=== PATIENT | female | born 1955 | race African-American/Black ===

== ENCOUNTER 2017-09-27 17:21 | Emergency (ER) | payer OTHER ==
--- NOTE | 2017-09-27 17:32 | PDOC ---
History of Present Illness - General Chief Complaint: Headache Stated Complaint: HYPERTENSION Time Seen by Provider: 09/27/17 17:31 - History of Present Illness Initial Comments: 09/27/17 17:52 Ms. Mccarthy is a 61 yo female w/ pmh of HTN, GERD and glaucoma who presents complaining of a severe generalized headache and intermittent chest pain today with insidious onset. She reports she went to her pcp's office today for this and was told to come to ER after BP was noted to be above 200 systolic. Ms. Mccarthy reports that yesterday she was feeling at her baseline but that her headache started after waking up today. She describes her chest pain as a burning sensation that she describes as separate from her normal burning GERD sensations. The patient denies chest pain, shortness of breath, and dizziness. Denies fever , chills, nausea, vomit, diarrhea and constipation. Denies dysuria, frequency, urgency and hematuria. Allergies: Ketorolac, triamcinolone Past History - Past Medical History Allergies/Adverse Reactions: Allergies Allergy/AdvReac Type Severity Reaction Status Date / Time ketorolac tromethamine Allergy Intermediate Rash Verified 09/27/17 17:32 [From Toradol] triamcinolone acetonide Allergy Mild Rash Verified 09/27/17 17:32 [From Kenalog] latex Allergy Rash Verified 09/27/17 17:32 Home Medications: Ambulatory Orders Aspirin [ASA -] 81 mg PO DAILY 09/02/13 Atorvastatin Ca [Lipitor] 40 mg PO HS #30 tablet 09/13/13 Diltiazem Cd [Cardizem Cd -] 120 mg PO DAILY #30 cap.cd.24h 09/13/13 Magnesium Hydroxide [Milk of Magnesia -] 30 ml PO DAILY PRN #1 ml 09/13/13 Metoclopramide HCl [Reglan -] 10 mg PO TID #90 tablet 09/13/13 Mirtazapine [Remeron -] 15 mg PO HS #30 tablet 09/13/13 Cyclobenzaprine HCl [Flexeril -] 10 mg PO BID 11/06/13 Metronidazole 250 mg PO QID 11/06/13 Omeprazole 40 mg PO DAILY 11/06/13 Tapentadol HCl [Nucynta] 100 mg PO DAILY PRN 11/06/13 Sulfamethoxazole/Trimethoprim [Bactrim Ds -] 1 tab PO BID #6 tablet 09/27/17 Anemia: No Asthma: No Cancer: No Cardiac Disorders: No CVA: No COPD: No CHF: No Dementia: No Diabetes: No GI Disorders: No Disorders: No HTN: Yes Hypercholesterolemia: Yes Liver Disease: No Seizures: No Thyroid Disease: No - Surgical History Abdominal Surgery: No Appendectomy: No Cardiac Surgery: No Cholecystectomy: No Lung Surgery: No Neurologic Surgery: No (FACET INJECTION) Orthopedic Surgery: Yes (right knee arthroscopy,LEFT KNEE ARTHROSCOPY) - Suicide/Smoking/Psychosocial Hx Smoking History: Never smoked Have you smoked in the past 12 months: No Hx Alcohol Use: No Drug/Substance Use Hx: No Substance Use Type: None Hx Substance Use Treatment: No Review of Systems - Review of Systems Comments:: 09/27/17 18:03 GENERAL/CONSTITUTIONAL: No fever or chills. No weakness. HEAD, EYES, EARS, NOSE AND THROAT: No change in vision. No ear pain or discharge. No sore throat. CARDIOVASCULAR: No chest pain or shortness of breath RESPIRATORY: No cough, wheezing, or hemoptysis. GASTROINTESTINAL: No nausea, vomiting, diarrhea or constipation. GENITOURINARY: No dysuria, frequency, or change in urination. MUSCULOSKELETAL: No joint or muscle swelling or pain. No neck or back pain. SKIN: No rash NEUROLOGIC: +Headache as described. No vertigo, loss of consciousness, or change in strength/sensation. ENDOCRINE: No increased thirst. No abnormal weight change HEMATOLOGIC/LYMPHATIC: No anemia, easy bleeding, or history of blood clots. ALLERGIC/IMMUNOLOGIC: No hives or skin allergy. *Physical Exam - Physical Exam Comments: 09/27/17 18:03 GENERAL: Awake, alert, and fully oriented, in no acute distress HEAD: No signs of trauma, normocephalic, atraumatic EYES: PERRLA, EOMI, sclera anicteric, conjunctiva clear ENT: Auricles normal inspection, hearing grossly normal, nares patent, oropharynx clear without exudates. Moist mucosa NECK: Normal ROM, supple, no lymphadenopathy, JVD, or masses LUNGS: No distress, speaks full sentences, clear to auscultation bilaterally HEART: Regular rate and rhythm, normal S1 and S2, no murmurs, rubs or gallops, peripheral pulses normal and equal bilaterally. ABDOMEN: Soft, nontender, normoactive bowel sounds. No guarding, no rebound. No masses EXTREMITIES: Normal inspection, Normal range of motion, no edema. No clubbing or cyanosis. NEUROLOGICAL: Cranial nerves II through XII grossly intact. Normal speech, normal gait, no focal sensorimotor deficits SKIN: Warm, Dry, normal turgor, no rashes or lesions noted. ED Treatment Course - LABORATORY CBC & Chemistry Diagram: 09/27/17 18:00 09/27/17 19:00 Medical Decision Making - Medical Decision Making 09/27/17 18:40 Ms. Mccarthy is a 61 yo female w/ pmh as described who presents w/ increased BP and headache as described. Patient's home diltiazem given for treatment as well as cardiac workup and pain control started. No observed affect from diltiazem, clonidine, benadryl, and reglan given for further treatment. 09/27/17 20:17 Systolic BP decreased to 100, gentle hydration started as patient responds to clonidine. Patient reporting relief from symptoms with no current complaints. Alert and oriented. 09/27/17 22:08 Patient stable, maintaining AOx3. Rx sent to pt's pharmacy for UTI. Discharging patient to home with instructions to follow-up with PCP tomorrow. Patient verbalized understanding and agreement and will comply. Discharging to home. *DC/Admit/Observation/Transfer Diagnosis at time of Disposition: Hypertension Qualifiers: Hypertension type: unspecified Qualified Code(s): I10 - Essential (primary) hypertension UTI (urinary tract infection) Qualifiers: Urinary tract infection type: site unspecified Hematuria presence: without hematuria Qualified Code(s): N39.0 - Urinary tract infection, site not specified - Discharge Dispostion Disposition: HOME - Referrals Referrals: King Wall [Primary Care Provider] - - Patient Instructions Printed Discharge Instructions: DI for Urinary Tract Infection (UTI) Additional Instructions: Please return if any pain, fever, chills, altered mental status, or other concerning symptoms. Follow-up with primary care provider tomorrow for further evaluation. - Post Discharge Activity
[2017-09-27] MEDS ORDERED: dilTIAZem HCL 60 MG TABLET (FP) PO ONE (17:48)
[2017-09-27] MEDS ORDERED: MAG HYDROX/AL HYDROX/SIMETH 30 ML UNIT-DOSE CUP PO ONE (17:50)
[2017-09-27] MEDS ORDERED: ACETAMINOPHEN 500 MG TABLET (FP) PO ONE (17:50)
[2017-09-27] MEDS ORDERED: FAMOTIDINE IV 20 MG/12 ML VIAL IVPB ONE (17:51)
[2017-09-27] MEDS ORDERED: ACETAMINOPHEN 325 MG TABLET (FP) ONE (17:58)
[2017-09-27] MEDS ORDERED: dilTIAZem HCL 60 MG TABLET (FP) ONE (17:59)
[2017-09-27] MEDS ORDERED: MAG HYDROX/AL HYDROX/SIMETH 30 ML UNIT-DOSE CUP ONE (17:59)
[2017-09-27] MEDS ORDERED: FAMOTIDINE 20 MG/50 ML IVPB 20 MG/50 ML MG IVPB ONE (18:00)
[2017-09-27 18:28] VITALS: TEMP 99; BMI 67.6
[2017-09-27] MEDS ORDERED: METOCLOPRAMIDE HCL INJECTION 10 MG/2 ML VIAL IVPB ONE (18:38)
[2017-09-27] MEDS ORDERED: cloNIDine HCL 0.1 MG TABLET PO ONE (18:38)
[2017-09-27] MEDS ORDERED: METOCLOPRAMIDE HCL INJECTION 10 MG/2 ML VIAL ONE (18:46)
[2017-09-27] MEDS ORDERED: cloNIDine HCL 0.1 MG TABLET ONE (18:46)
[2017-09-27 18:47] LABS: URINE APPEARANCE CLEAR; URINE BILIRUBIN NEGATIVE (NEGATIVE); URINE BLOOD NEGATIVE (NEGATIVE); URINE COLOR STRAW; URINE GLUCOSE (UA) NEGATIVE (NEGATIVE); URINE KETONE NEGATIVE (NEGATIVE); URINE NITRITE NEGATIVE (NEGATIVE); URINE UROBILINOGEN NEGATIVE mg/dL (0.2-1.0)
[2017-09-27 18:49] LABS: BASO % 0.6 % (0-2.0); EOS % 0.2 % (0-4.5); HEMATOCRIT 40.5 % (32.4-45.2); HEMOGLOBIN 13.9 GM/dL (10.7-15.3); MCH 29.2 pg (25.7-33.7); MCHC 34.4 g/dl (32.0-36.0); MEAN CELL VOLUME 84.7 fl (80-96); MEAN PLT VOLUME 7.3 fl (7.5-11.1); MONO % 8.1 % (3.8-10.2); NEUT % 74.1 % (42.8-82.8); PLATELET COUNT 282 K/MM3 (134-434); RBC 4.77 M/mm3 (3.60-5.2); RDW 14.3 % (11.6-15.6); WHITE BLOOD COUNT 9.8 K/mm3 (4.0-10.0)
[2017-09-27 18:52] LABS: URINE PROTEIN 1+ (NEGATIVE)
[2017-09-27 18:53] LABS: URINE LEUK ESTERASE 2+ (NEGATIVE)
[2017-09-27] MEDS ORDERED: SODIUM CHLORIDE 500 ML IV STA ×2 (19:20→20:44)
[2017-09-27 19:46] LABS: EPI CELLS RARE /HPF (FEW)
[2017-09-27 19:56] LABS: ALBUMIN 4.1 g/dl (3.4-5.0); ANION GAP 8 (8-16); BILIRUBIN,TOTAL 0.6 mg/dL (0.2-1.0); BLOOD UREA NITROGEN 19 mg/dL (7-18); CALCIUM 8.6 mg/dL (8.5-10.1); CHLORIDE 103 mmol/L (98-107); CO2 28 mmol/L (21-32); GLUCOSE,RANDOM 112 mg/dL (74-106); SGPT/ALT 29 U/L (12-78); SODIUM 139 mmol/L (136-145); TOT PROT 7.9 g/dl (6.4-8.2)
[2017-09-27 19:58] LABS: ALK PHOS 84 U/L (45-117)
[2017-09-27 20:14] LABS: POTASSIUM 3.7 mmol/L (3.5-5.1); SGOT/AST 30 U/L (15-37)
[2017-09-27] MEDS ORDERED: SULFAMETHOXAZOLE/TRIMETHOPRIM 800MG/160MG D.S. TABLET PO ONE (22:12)
[2017-09-27] MEDS ORDERED: SULFAMETHOXAZOLE/TRIMETHOPRIM 800MG/160MG D.S. TABLET ONE (22:23)
--- NOTE | 2017-09-27 22:23 | PDOC ---
Attending Attestation - Resident Resident Name: PranaymarlenyBora - ED Attending Attestation I have performed the following: I have examined & evaluated the patient, The case was reviewed & discussed with the resident, I agree w/resident's findings & plan, Exceptions are as noted - HPI HPI: 09/27/17 22:22 61 yo female p/w elevated BP and headache - Physicial Exam PE: 09/27/17 22:23 61 yo female in no acute disrtress head ncat eyes eomi neck supple lungs cta b.l cvs [id number] abd nontender ext from neuro ax0x3 skin no rashes,no cellulitis psych appropriate - Medical Decision Making 09/27/17 22:24 pt;s headache resolved and her BP responded to medications
[2017-09-27 22:30] VITALS: BP 100/66; PULSE 50
--- NOTE | 2017-09-28 10:58 | EKG ---
Test Reason : Blood Pressure : / mmHG Vent. Rate : 071 BPM Atrial Rate : 071 BPM P-R Int : 156 ms QRS Dur : 082 ms QT Int : 368 ms P-R-T Axes : 060 016 065 degrees QTc Int : 399 ms NORMAL SINUS RHYTHM NORMAL ECG WHEN COMPARED WITH ECG OF 04-NOV-2015 13:20, NO SIGNIFICANT CHANGE WAS FOUND Confirmed by SHARITA MACDONALD MD ([id number]) on 09/28/2017 10:58:05 AM Referred By: Confirmed By:SHARITA MACDONALD MD
== END 2017-09-27 22:30 | disposition home or self-care (01) ==
LOC: JER 17:21
PROC: 3E033GC Introduction of Other Therapeutic Substance into Peripheral Vein, Percutaneous Approach (ICD-10-PCS; principal; 2017-09-27)
PROC: 3E0337Z Introduction of Electrolytic and Water Balance Substance into Peripheral Vein, Percutaneous Approach (ICD-10-PCS; 2017-09-27)
DX: N39.0 Urinary tract infection, site not specified (principal); I10 Essential (primary) hypertension; E78.00 Pure hypercholesterolemia, unspecified
CPT/HCPCS: 36415; 71045-TC-FY; 80053; 81003; 81015; 82550; 82553; 84484; 85025; 93005; 93010; 99283-25; J0735

== ENCOUNTER 2019-07-31 11:47 | Emergency (ER) | payer OTHER ==
[2019-07-31 11:52] VITALS: BMI 28.4
[2019-07-31 13:48] LABS: BASO % 1.6 % (0-2.0); EOS % 4.1 % (0-4.5); HEMATOCRIT 43.3 % (32.4-45.2); LYMPH % 35.8 % (8-40); MCH 27.9 pg (25.7-33.7); MCHC 32.3 g/dl (32.0-36.0); MEAN CELL VOLUME 86.5 fl (80-96); MEAN PLT VOLUME 7.6 fl (7.5-11.1); MONO % 7.8 % (3.8-10.2); NEUT % 50.7 % (42.8-82.8); PLATELET COUNT 319 K/MM3 (134-434); RDW 14.7 % (11.6-15.6); WHITE BLOOD COUNT 4.4 K/mm3 (4.0-10.0)
[2019-07-31 14:22] LABS: ALBUMIN 3.7 g/dl (3.4-5.0); BILIRUBIN,TOTAL 0.5 mg/dL (0.2-1); BLOOD UREA NITROGEN 12.3 mg/dL (7-18); CALCIUM 8.9 mg/dL (8.5-10.1); CREATININE 0.9 mg/dL (0.55-1.3); POTASSIUM 4.2 mmol/L (3.5-5.1); TOT PROT 7.3 g/dl (6.4-8.2)
[2019-07-31] MEDS ORDERED: amLODIPine BESYLATE 5 MG TABLET (FP) PO ONE (14:37)
[2019-07-31] MEDS ORDERED: ACETAMINOPHEN 1000 MG/100 ML VIAL (NON FORMULARY) IVPB ONE (14:57)
[2019-07-31] MEDS ORDERED: amLODIPine BESYLATE 5 MG TABLET (FP) ONE (15:05)
[2019-07-31] MEDS ORDERED: ACETAMINOPHEN INJECTION 100 ML IVPB ONE (15:05)
--- NOTE | 2019-07-31 15:59 | PDOC ---
History of Present Illness <Chema Brownlee - Last Filed: 07/31/19 17:26> - General History Source: Patient Exam Limitations: No Limitations - History of Present Illness Initial Comments: 63 y/o HTN, HLD, GERD, glaucoma, and recent pituitary adenoma resection, presented to the ED c/o of palpitations, shortness of breath on exertion and moderate sharp and dull chest pain of 4 day duration that began after a personal family stressor. Pt reports the pain as parasternal and episodic with her palpitations and SOB, which was relieved after taking 2 ASA. Pt reports that she was agitated with her son and since then her symptoms have worsened. She gives hx of sob on exertion for 1 year now but follows her graphics programmer Dr. Garcia, who has done and stress test and found it to be normal. Admits to headaches. Denies f/c/n/v/d/abdominal pain. 07/31/19 15:54 07/31/19 17:29 Associated Symptoms: reports: denies symptoms, chest pain, shortness of breath. denies: diaphoresis, loss of appetite <Ga Styles - Last Filed: 07/31/19 18:38> - General Chief Complaint: Chest Pain Stated Complaint: CHEST PAIN Time Seen by Provider: 07/31/19 13:21 Past History <Chema Brownlee - Last Filed: 07/31/19 17:26> - Travel Traveled outside of the country in the last 30 days: No Close contact w/someone who was outside of country & ill: No - Past Medical History Anemia: No Asthma: No Cancer: No Cardiac Disorders: No CVA: No COPD: No CHF: No Dementia: No Diabetes: No GI Disorders: No Disorders: No HTN: Yes Hypercholesterolemia: Yes Liver Disease: No Seizures: No Thyroid Disease: No - Surgical History Abdominal Surgery: No Appendectomy: No Cardiac Surgery: No Cholecystectomy: No Lung Surgery: No Neurologic Surgery: No (FACET INJECTION) Orthopedic Surgery: Yes (right knee arthroscopy,LEFT KNEE ARTHROSCOPY) - Psycho Social/Smoking Cessation Hx Smoking History: Never smoked Have you smoked in the past 12 months: No Hx Alcohol Use: No Drug/Substance Use Hx: No Substance Use Type: None Hx Substance Use Treatment: No <Ga Styles - Last Filed: 07/31/19 18:38> - Past Medical History Allergies/Adverse Reactions: Allergies Allergy/AdvReac Type Severity Reaction Status Date / Time ketorolac tromethamine Allergy Intermediate Rash Verified 07/31/19 11:52 [From Toradol] triamcinolone acetonide Allergy Mild Rash Verified 07/31/19 11:52 [From Kenalog] latex Allergy Rash Verified 07/31/19 11:52 Home Medications: Ambulatory Orders Atorvastatin Ca [Lipitor] 40 mg PO HS #30 tablet 09/13/13 Omeprazole 40 mg PO DAILY 11/06/13 Amlodipine Besylate 5 mg PO DAILY 07/31/19 Aspirin [Aspirin EC] 81 mg PO DAILY 07/31/19 Carvedilol 12.5 mg PO BID 07/31/19 Ergocalciferol [Vitamin D2] 50,000 unit PO Q7D@1000 07/31/19 Magnesium Oxide 400 mg PO DAILY 07/31/19 Timolol 0.5% [Timoptic 0.5%] 1 drop OU BID 07/31/19 metFORMIN HCL [Metformin HCl ER] 1 tab PO DAILY 07/31/19 Review of Systems - Review of Systems Able to Perform ROS?: Yes Is the patient limited Danish proficient: No Constitutional: Yes: Symptoms Reported, Weight Stable. No: Chills, Fever HEENTM: Yes: Symptoms Reported. No: Blurred Vision, Ear Pain Respiratory: Yes: Symptoms reported, Shortness of Breath. No: Cough, Wheezing Cardiac (ROS): Yes: Symptoms Reported, Chest Pain ABD/GI: Yes: Symptoms Reported. No: Abdominal Distended, Constipated, Diarrhea , Nausea, Vomiting Musculoskeletal: Yes: Symptoms Reported. No: Back Pain Neurological: Yes: Symptoms reported. No: Headache, Numbness <Ga Styles - Last Filed: 07/31/19 18:38> *Physical Exam - Vital Signs Last Vital Signs Temp Pulse Resp BP Pulse Ox 98 F 50 L 18 154/119 H 100 07/31/19 11:48 07/31/19 13:30 07/31/19 13:30 07/31/19 13:30 07/31/19 13:30 <Chema Brownlee - Last Filed: 07/31/19 17:26> - Vital Signs Last Vital Signs Temp Pulse Resp BP Pulse Ox 98 F 50 L 18 154/119 H 100 07/31/19 11:48 07/31/19 13:30 07/31/19 13:30 07/31/19 13:30 07/31/19 13:30 - Physical Exam General Appearance: Yes: Nourished, Appropriately Dressed HEENT: positive: EOMI, ENE, Normal ENT Inspection, Pharynx Normal Neck: positive: Trachea midline, Normal Thyroid, Supple Respiratory/Chest: positive: Lungs Clear, Normal Breath Sounds. negative: Crackles, Stridor, Wheezing, Dullness Cardiovascular: positive: Regular Rhythm, Regular Rate, S1, S2. negative: Murmur, Gallop/S3, Gallop/S4 Vascular Pulses: Dorsalis-Pedis (R): 2+, Doralis-Pedis (L): 2+ Gastrointestinal/Abdominal: positive: Normal Bowel Sounds, Soft. negative: Protuberent, Guarding, Tenderness, Spleenomegaly Neurologic: positive: Fully Oriented, Alert, Normal Mood/Affect <Ga Styles - Last Filed: 07/31/19 18:38> Heart Score/ECG Review - History History: Moderately suspicious - Electrocardiogram EKG: Normal - Age Age: >/= 65 - Risk Factors Risk Factors Heart Score: Yes Hx Hypercholesterolemia, Yes Hx Hypertension, Yes Hx Diabetes Based on the list above the patient has:: >/=3 risk factors or Hx atherosclerotic disease - Troponin Troponin: </= normal limit - Score Heart Score - Total: 5 <Chema Brownlee - Last Filed: 07/31/19 17:26> ED Treatment Course - LABORATORY CBC & Chemistry Diagram: 07/31/19 13:30 07/31/19 13:30 - ADDITIONAL ORDERS Additional order review: Laboratory Results 07/31/19 07/31/19 07/31/19 13:30 13:30 13:30 Sodium 140 Potassium 4.2 Chloride 106 Carbon Dioxide 30 Anion Gap 4 L BUN 12.3 Creatinine 0.9 Est GFR (CKD-EPI)AfAm 77.77 Est GFR (CKD-EPI)NonAf 67.10 Random Glucose 93 Calcium 8.9 Total Bilirubin 0.5 AST 22 ALT 21 Alkaline Phosphatase 79 Creatine Kinase 182 Creatine Kinase Index 1.0 CK-MB (CK-2) 1.9 Troponin I < 0.02 B-Natriuretic Peptide 147.4 H Total Protein 7.3 Albumin 3.7 TSH 1.07 07/31/19 13:30 RBC 5.00 MCV 86.5 MCHC 32.3 RDW 14.7 MPV 7.6 Neutrophils % 50.7 Lymphocytes % 35.8 Monocytes % 7.8 Eosinophils % 4.1 Basophils % 1.6 - Medications Given in the ED: ED Medications Discontinued Medications Generic Name Dose Route Start Last Admin Trade Name Freq PRN Reason Stop Dose Admin Acetaminophen 1,000 mg 07/31/19 14:57 07/31/19 15:15 Ofirmev Injection - IVPB 07/31/19 14:58 1,000 mg ONCE ONE Administration Amlodipine Besylate 5 mg 07/31/19 14:37 07/31/19 15:05 Norvasc - PO 07/31/19 14:38 5 mg ONCE ONE Administration <Chema Brownlee - Last Filed: 07/31/19 17:26> - LABORATORY CBC & Chemistry Diagram: 07/31/19 13:30 07/31/19 13:30 - ADDITIONAL ORDERS Additional order review: Laboratory Results 07/31/19 07/31/19 07/31/19 13:30 13:30 13:30 Sodium 140 Potassium 4.2 Chloride 106 Carbon Dioxide 30 Anion Gap 4 L BUN 12.3 Creatinine 0.9 Est GFR (CKD-EPI)AfAm 77.77 Est GFR (CKD-EPI)NonAf 67.10 Random Glucose 93 Calcium 8.9 Total Bilirubin 0.5 AST 22 ALT 21 Alkaline Phosphatase 79 Creatine Kinase 182 Creatine Kinase Index 1.0 CK-MB (CK-2) 1.9 Troponin I < 0.02 B-Natriuretic Peptide 147.4 H Total Protein 7.3 Albumin 3.7 TSH 1.07 07/31/19 13:30 RBC 5.00 MCV 86.5 MCHC 32.3 RDW 14.7 MPV 7.6 Neutrophils % 50.7 Lymphocytes % 35.8 Monocytes % 7.8 Eosinophils % 4.1 Basophils % 1.6 - RADIOLOGY Radiology Studies Ordered: Category Date Time Status CHEST X-RAY PORTABLE* [RAD] Stat Radiology 07/31/19 12:57 Completed - Medications Given in the ED: ED Medications Discontinued Medications Generic Name Dose Route Start Last Admin Trade Name Freq PRN Reason Stop Dose Admin Acetaminophen 1,000 mg 07/31/19 14:57 07/31/19 15:15 Ofirmev Injection - IVPB 07/31/19 14:58 1,000 mg ONCE ONE Administration Amlodipine Besylate 5 mg 07/31/19 14:37 07/31/19 15:05 Norvasc - PO 07/31/19 14:38 5 mg ONCE ONE Administration <Ga Styles - Last Filed: 07/31/19 18:38> Medical Decision Making - Medical Decision Making 63 y/o HTN, GERD, glaucoma, and recent pituitary adenoma resection, presented to the ED c/o of palpitations, shortness of breath on exertion and moderate sharp and dull chest pain of 4 day duration that began after a personal family stressor #Palpitations, SOB and chest pain r/o ACS EKG normal 1st trop normal, 2nd trop pending HEART score 3 Perc score 0 CBC, CMP CXR normal Tylenol IV Amlodipine 5mg for elevated bp, now resolved 07/31/19 16:00 07/31/19 16:01 <Latasha Stylesh - Last Filed: 07/31/19 18:38> Discharge <Chema Brownlee - Last Filed: 07/31/19 17:26> - Discharge Information Problems reviewed: Yes - Admission No <Latasha Stylesh - Last Filed: 07/31/19 18:38> - Discharge Information Clinical Impression/Diagnosis: Chest pain Qualifiers: Chest pain type: unspecified Qualified Code(s): R07.9 - Chest pain, unspecified Condition: Improved Disposition: AGAINST MEDICAL ADVICE - Follow up/Referral Referrals: King Wall [Primary Care Provider] - - Patient Discharge Instructions Patient Printed Discharge Instructions: DI for Chest Pain Additional Instructions: You were seen in the emergency room for chest pain and palpitations While in the emergency room, we evaluated you with blood work, lab work and imaging including x rays of your chest We found that your symptoms may have been caused by anxiety or panic attacks. We urge that you keep a close eye on your symptoms and ensure you follow up with your primary care physician and graphics programmer. We gave you medications and your symptoms improved. Please follow up with your primary care physician in 1 week Please follow up with your Geospatial Program Management Officer in 1 week Return to the emergency room, if your experience worsening of your symptoms, chest pain, headaches, anxiety attack or worsening of any of your condition. - Post Discharge Activity
[2019-07-31 18:35] VITALS: BP 143/103; PULSE 55; TEMP 97.6
--- NOTE | 2019-07-31 18:54 | PDOC ---
Documentation entered by Kendrick Ruth SCRIBE, acting as scribe for Romero Dash MD. Romero Dash MD: This documentation has been prepared by the Faraz das Daniel, SCRIBE, under my direction and personally reviewed by me in its entirety. I confirm that the documentation accurately reflects all work, treatment, procedures, and medical decision making performed by me. Attending Attestation - Resident Resident Name: Ga Styles - ED Attending Attestation I have performed the following: I have examined & evaluated the patient, The case was reviewed & discussed with the resident, I agree w/resident's findings & plan, Exceptions are as noted - HPI HPI: 07/31/19 16:15 The patient is a 63 year old female with a past medical history of HTN, NIDDM, HL, GERD, glaucoma, and pituitary adenoma resection here today for evaluation of intermittent palpitations, dyspnea on exertion, and chest pain x4 days. She reports 4 days ago, her son made a statement that was stressful to her at which point she began to experience palpitations, then non radiating non pleuritic sternal chest discomfort for 30 mins. SInce then, she has been experiencing dyspnea with exertion - states that she feel winded after walking 4-5 blocks or going up stairs. This morning, she had another episode of sternal chest tightness prompting her to call Dr. Parisi for evaluation. Although she had an appt, due to family emergency, Dr. Parisi was unable to see the pt and his staff recommended she come to the ED. At this time, she denies palpitaations, CP or MCKEE. SHe denies LE edema or calf pain. She was last admitted in [facility] for surgery. She also notes a global headache that she gets almost daily for years with no change in severity, location, or quality today. Of note, pt is hypertensive in the ED. States she has not taken her amlodipine or carvedilol today as she often does not when she is to see Dr. Parisi. Denies family hx cardiac disease, smoking. Patient denies lightheadedness focal weakness/numbness. Denies fever, chills. Denies nausea, vomiting, diarrhea, abdominal pain. Allergies: ketorolac tromethamine, triamcinolone acetonide, latex PCP: Bonnie Wall - Physicial Exam PE: 07/31/19 16:16 GENERAL: Awake, alert, and fully oriented, in no acute distress HEAD: No signs of trauma EYES: PERRLA, EOMI, sclera anicteric, conjunctiva clear ENT: Oropharynx clear without exudates. Moist mucosa NECK: Normal ROM, supple, no lymphadenopathy, JVD, or masses LUNGS: Breath sounds equal, clear to auscultation bilaterally. No wheezes, and no crackles HEART: Regular rate and rhythm, normal S1 and S2, no murmurs, rubs or gallops ABDOMEN: Soft, nontender, normoactive bowel sounds. No guarding, no rebound. No masses EXTREMITIES: Normal range of motion, no edema. No clubbing or cyanosis. No cords , erythema, or tenderness. WWP distally. BACK: No midline spinal tenderness in cervical/thoracic/lumbar region NEUROLOGICAL: Normal speech, cranial nerves intact, negative pronator drift, 5/ 5 strength in all 4 extremities, normal sensation to light touch in all 4 extremities, normal cerebellar exam, normal gait SKIN: Warm, Dry, normal turgor, no rashes or lesions noted. - Medical Decision Making 07/31/19 16:00 63yo F hx HTN, HL, DM presents to the ED with intermittent MCKEE, palpitations, chest tightness Vitals with elevated BP (although pt admits to skipping BP meds today) and bradycardia Exam unremarkable with well appearing pt EKG non ischemic DDX IBNLT: ACS vs MSK pain vs PE vs PNA Unlikely PE as she has no RF, is active, with surgery >4 weeks ago, no clinical signs/sxs of DVT, no tachycardia. Furthermore, sxs are intermittent making PE less likely CXR clear so unlikely PNA Story most concerning for ACS - Heart score is 4. Recommended overnight observation to pt, however she reports she must go home to her dog. She is amenable to a rpt trop at this time for further evaluation prior to likely signing out AMA. 07/31/19 17:00 RPt trop neg Pt denies current sxs Discussed recommendation of overnight obs at length given elevated HS, but pt adamant about leaving to tend to her dog. WIll sign out AMA AMA Heart Score/ECG Review - History History: Slightly suspicious - Electrocardiogram EKG: Normal - Age Age: >/= 65 - Risk Factors Risk Factors Heart Score: Yes Hx Hypercholesterolemia, Yes Hx Hypertension, Yes Hx Diabetes Based on the list above the patient has:: >/=3 risk factors or Hx atherosclerotic disease - Troponin Troponin: </= normal limit - Score Heart Score - Total: 4 #1 07/31/19 18:47 EKG read and int by me: Sinus bradycardia, rate 51, normal axis and intervals. No ISIDORO or TWI.
--- NOTE | 2019-08-01 11:37 | EKG ---
Test Reason : Blood Pressure : / mmHG Vent. Rate : 051 BPM Atrial Rate : 051 BPM P-R Int : 158 ms QRS Dur : 072 ms QT Int : 398 ms P-R-T Axes : 052 019 031 degrees QTc Int : 366 ms SINUS BRADYCARDIA OTHERWISE NORMAL ECG WHEN COMPARED WITH ECG OF 27-SEP-2017 17:53, NO SIGNIFICANT CHANGE WAS FOUND Confirmed by SHARITA MACDONALD MD ([id number]) on 08/01/2019 11:37:25 AM Referred By: Confirmed By:SHARITA MACDONALD MD
== END 2019-07-31 18:30 | disposition left against medical advice (07) ==
LOC: JER 11:47
PROC: 3E033NZ Introduction of Analgesics, Hypnotics, Sedatives into Peripheral Vein, Percutaneous Approach (ICD-10-PCS; principal; 2019-07-31)
DX: R07.9 Chest pain, unspecified (principal); I10 Essential (primary) hypertension; E78.00 Pure hypercholesterolemia, unspecified; E11.9 Type 2 diabetes mellitus without complications; Z79.84 Long term (current) use of oral hypoglycemic drugs
CPT/HCPCS: 36415; 71045-TC-FY; 80053; 82550; 82553; 83880; 84443; 84484; 85025; 93005; 93010; 96374; 99283-25; J0131

== ENCOUNTER → 2024-07-03 | Day surgery (SDC) | payer OTHER | END | disposition home or self-care (01) | LOC: JRADIR 10:50 | PROVIDERS: ATTEND Internal Medicine | PROC: 0G9H3ZX Drainage of Right Thyroid Gland Lobe, Percutaneous Approach, Diagnostic (ICD-10-PCS; principal; 2024-07-03) | DX: E04.1 Nontoxic single thyroid nodule (principal) | CPT/HCPCS: 10007; 76942; 88173; 88305-TC ==